=== PATIENT | female | born 1980 | race Caucasian/White ===

== ENCOUNTER → 2016-11-28 | Outpatient (REF) | payer OTHER ==
[~2016-11-28] MED LIST: /MOXI40TA OR; ALBU17IN2 IN; SYNT175T OR; VENTOLIN; ZOLO100T OR; advair; atrovent; prednisone
== END ==
LOC: M LAB REF 09:55
PROVIDERS: ATTEND Physician Assistant
DX: J02.9 Acute pharyngitis, unspecified (principal)

== ENCOUNTER → 2017-01-31 | Outpatient (CLI) | payer OTHER ==
[2017-01-31 14:52] LABS: MEAN CORPUSCULAR HEMOGLOBIN 24.3 pg (27.0-33.0); MEAN CORPUSCULAR VOLUME 78.4 fl (80.0-96.0); RED CELL DISTRIBUTION WIDTH 16.4 % (11.5-14.5); WHITE BLOOD COUNT 9.6 K/mm3 (4.0-10.0)
[2017-01-31 16:54] LABS: ALBUMIN 3.6 GM/DL (3.2-5.2); ALBUMIN/GLOBULIN RATIO 0.97 (1.00-1.93); ALKALINE PHOSPHATASE 57 U/L (45-117); ALT/SGPT 31 U/L (12-78); ANION GAP 7 MEQ/L (8-16); AST/SGOT 15 U/L (15-37); BILIRUBIN,TOTAL 0.2 MG/DL (0.2-1.0); BLOOD UREA NITROGEN 9 MG/DL (7-18); CALCIUM LEVEL 9.1 MG/DL (8.5-10.1); CARBON DIOXIDE LEVEL 30 MEQ/L (21-32); CHLORIDE LEVEL 104 MEQ/L (98-107); CREATININE FOR GFR 0.71 MG/DL (0.55-1.02); FREE T4 1.74 NG/DL (0.76-1.46); GLOMERULAR FILTRATION RATE > 60.0 (>60); GLUCOSE, FASTING 89 MG/DL (70-105); POTASSIUM SERUM 4.2 MEQ/L (3.5-5.1); SODIUM LEVEL 141 MEQ/L (136-145); TOTAL PROTEIN 7.3 GM/DL (6.4-8.2)
== END ==
LOC: M WUC 11:33
PROVIDERS: ATTEND Nurse Practitioner Family
DX: E03.9 Hypothyroidism, unspecified (principal); Z01.812 Encounter for preprocedural laboratory examination

== ENCOUNTER → 2017-04-04 | Outpatient (REF) | payer OTHER ==
[2017-04-04 16:43] LABS: ALBUMIN 3.9 GM/DL (3.2-5.2); ALBUMIN/GLOBULIN RATIO 1.11 (1.00-1.93); ALKALINE PHOSPHATASE 47 U/L (45-117); ALT/SGPT 40 U/L (12-78); ANION GAP 8 MEQ/L (8-16); AST/SGOT 22 U/L (15-37); BILIRUBIN,TOTAL 0.3 MG/DL (0.2-1.0); BLOOD UREA NITROGEN 12 MG/DL (7-18); CALCIUM LEVEL 9.6 MG/DL (8.5-10.1); CARBON DIOXIDE LEVEL 26 MEQ/L (21-32); CHLORIDE LEVEL 105 MEQ/L (98-107); CREATININE FOR GFR 0.57 MG/DL (0.55-1.02); FERRITIN 17 NG/ML (8-252); GLOMERULAR FILTRATION RATE > 60.0 (>60); GLUCOSE, FASTING 89 MG/DL (70-105); MAGNESIUM LEVEL 1.9 MG/DL (1.8-2.4); PERCENT SATURATION 12.2 % (13.2-45.0); PHOSPHORUS LEVEL 3.6 MG/DL (2.5-4.9); POTASSIUM SERUM 4.1 MEQ/L (3.5-5.1); SODIUM LEVEL 139 MEQ/L (136-145); TOTAL IRON BINDING CAPACITY 419 UG/DL (250-450); TOTAL PROTEIN 7.4 GM/DL (6.4-8.2)
[2017-04-04 18:26] LABS: BASO # 0.1 10^3/uL (0.0-0.2); EOS # 0.2 10^3/uL (0.0-0.50); EOS % 3.6 % (0.0-3.0); IMMATURE GRANULOCYTE % 0.3 % (0-0); LYMPH # 1.6 10^3/uL (1.5-4.5); LYMPH % 25.4 % (24.0-44.0); MEAN CORPUSCULAR HEMOGLOBIN 23.8 pg (27.0-33.0); MEAN CORPUSCULAR HGB CONC 30.3 g/dl (32.0-36.5); MEAN CORPUSCULAR VOLUME 78.5 fl (80.0-96.0); MONO # 0.5 10^3/uL (0.0-0.8); MONO % 8.1 % (0.0-5.0); NEUTROPHILS # 3.8 10^3/uL (1.8-7.7); NEUTROPHILS % 61.6 % (36.0-66.0); PLATELET COUNT, AUTOMATED 312 10^3/uL (150-450); RED CELL DISTRIBUTION WIDTH 17.4 % (11.5-14.5); WHITE BLOOD COUNT 6.2 10^3/uL (4.0-10.0)
[2017-04-04 18:53] LABS: VITAMIN B12 LEVEL 713 PG/ML (247-911)
[2017-04-06 11:38] LABS: PRETREATED FOLATE FOR RBCFOL 19.1 NG/ML
== END ==
LOC: M LAB REF 14:16
PROVIDERS: ATTEND Surgery
DX: K91.2 Postsurgical malabsorption, not elsewhere classified (principal); Z98.84 Bariatric surgery status

== ENCOUNTER → 2020-03-13 | Outpatient (CLI) | payer OTHER ==
[~2020-03-13] MED LIST changes: -/MOXI40TA OR; +AVEL1TAB2 OR; +FERR325T81 PO; +LEVO175T2 PO; +MULTCAP PO; +SERT-138 PO; +xyzal PO
== END ==
LOC: M LABSMTC 08:53
PROVIDERS: ATTEND Anesthesiology
DX: Z01.812 Encounter for preprocedural laboratory examination (principal); Z20.828 Contact with and (suspected) exposure to other viral communicable diseases
CPT/HCPCS: C9803; U0003

== ENCOUNTER 2020-03-18 06:12 | Day surgery (SDC) | payer BC, OTHER ==
[~2020-03-18] VITALS: Ht 157.5 cm; Wt 102.5 kg
[~2020-03-18 06:12] MED LIST changes: +LR 1,000 ML IV ONE
[2020-03-18] MEDS ORDERED: KETOROLAC 60MG 2ML VIAL As Ordered ONE (07:18)
[2020-03-18] MEDS ORDERED: ONDANSETRON 4MG/2ML VIAL As Ordered ONE (07:18)
[2020-03-18] MEDS ORDERED: dexameTHASONE 4 MG/ML 1ML VIAL (J1100 PER 1MG) As Ordered ONE (07:18)
[2020-03-18] MEDS ORDERED: MIDAZOLAM INJ 2MG/2ML VIAL (J2250 PER 1MG) As Ordered ONE (07:20)
[2020-03-18] MEDS ORDERED: fentaNYL 100 MCG/2 ML INJECTION (J3010) As Ordered ONE (07:20)
[2020-03-18] MEDS ORDERED: propofoL 200 MG/20 ML VIAL As Ordered ONE (07:21)
[2020-03-18] MEDS ORDERED: LIDOCAINE 2% 100MG/5ML SDV (FOR ANES.) As Ordered ONE (07:21)
[2020-03-18] MEDS ORDERED: ePHEDrine SULFATE 25 MG/5 ML(5MG/ML) SYRINGE As Ordered ONE (08:02)
[2020-03-18] MEDS ORDERED: oxyCODONE 5MG TAB PO PRN (09:00)
[2020-03-18] MEDS ORDERED: IBUPROFEN 600MG TAB PO PRN (09:00)
[2020-03-18] MEDS ORDERED: ONDANSETRON 4MG/2ML VIAL IV PRN (09:00)
[2020-03-18] MEDS ORDERED: LR 1,000 ML IV SCH ×2 (09:00)
[2020-03-18] MEDS ORDERED: HYDROMORPHONE HCL 0.5 MG/ 0.5 ML SYRINGE (J1170 PER 1) IV PRN (09:00)
[2020-03-18] MEDS ORDERED: fentaNYL 100 MCG/2 ML INJECTION (J3010) IV PRN (09:00)
[2020-03-18 09:10] VITALS: BP 133/79
--- NOTE | 2020-03-29 08:23 | RO ---
DATE OF OPERATION: 03/18/2020 PREOPERATIVE DIAGNOSIS: Atypical hyperplasia on pathology. POSTOPERATIVE DIAGNOSIS: Atypical hyperplasia on pathology. PROCEDURE: D&C, hysteroscopy, MyoSure resection. SURGEON: Ashly Ross MD CLIENT PARTNER: None. SPECIMEN: Endometrium. ANESTHESIA: LMA. BRIEF DESCRIPTION OF PROCEDURE AND FINDINGS: Brenda was brought to the operating room where sufficient LMA anesthesia was induced. She was prepped, draped and positioned in the usual sterile fashion with weighted speculum placed and single tooth tenaculum placed on the cervix. The uterus is very well supported. She would not be a candidate for vaginal approach to the uterus should that become necessary in the future. The uterus was sounded to 9 and then cervix carefully dilated in order to allow introduction of hysteroscope which was placed following which the endometrial cavity was visualized. There were several polypoid overgrowths, one of which looked of increased vascularity consistent with preop diagnosis of atypical complex hyperplasia. MyoSure resection was undertaken and complete resection of this overgrowth was achieved visually and there did not appear to be a hypervascularity below that overgrowth. We did also suction some saline through the tubing to ensure all that sample from the MyoSure went to path. We also did final curette passes over the uterus to complete the sampling and then the procedure was ended. Estimated blood loss for the procedure maybe 5 mL. Fluid replacement Crystalloid. Complications: None. Condition and Disposition: Brenda tolerated the procedure well and was recovering in recovery room in good condition. DELTA
== END 2020-03-18 09:45 | disposition home or self-care (01) ==
LOC: M SDC 06:12
PROVIDERS: ATTEND Obstetrics & Gynecology
DX: N85.01 Benign endometrial hyperplasia (principal); R10.2 Pelvic and perineal pain; N92.0 Excessive and frequent menstruation with regular cycle; E03.9 Hypothyroidism, unspecified; K44.9 Diaphragmatic hernia without obstruction or gangrene; K21.9 Gastro-esophageal reflux disease without esophagitis; L40.9 Psoriasis, unspecified; J45.909 Unspecified asthma, uncomplicated; Z79.899 Other long term (current) drug therapy
CPT/HCPCS: 58558; 81025; 88305; J1100; J1885; J2250; J2405; J3010

== ENCOUNTER → 2020-05-08 | Outpatient (CLI) | payer BC, OTHER ==
[~2020-05-08] MED LIST changes: +LEVO200T4 PO; -LR 1,000 ML IV ONE
== END ==
LOC: M LABSMTC 08:41
PROVIDERS: ATTEND Anesthesiology
DX: Z01.812 Encounter for preprocedural laboratory examination (principal); Z20.828 Contact with and (suspected) exposure to other viral communicable diseases

== ENCOUNTER 2020-05-13 08:39 | Day surgery (SDC) | payer BC, OTHER ==
[2020-05-13] VITALS (8 sets, daily range): BP systolic 107–121; BP diastolic 71–88; O2SAT 92
[~2020-05-13] VITALS: Ht 157.5 cm; Wt 105.6 kg
[~2020-05-13 08:39] MED LIST changes: -LEVO200T4 PO; +LR 1,000 ML IV ONE; +ceFAZolin SOD 2 GM in IV 1 EA IV ONE
[2020-05-13] MEDS ORDERED: ROCURONIUM BROMIDE 50 MG/5 ML VIAL As Ordered ONE (09:33)
[2020-05-13] MEDS ORDERED: METOCLOPRAMIDE INJ 10MG/2ML VIAL (J2765 PER 1) As Ordered ONE (09:33)
[2020-05-13] MEDS ORDERED: MIDAZOLAM INJ 2MG/2ML VIAL (J2250 PER 1MG) As Ordered ONE (09:33)
[2020-05-13] MEDS ORDERED: ONDANSETRON 4MG/2ML VIAL As Ordered ONE (09:33)
[2020-05-13] MEDS ORDERED: LIDOCAINE 2% 100MG/5ML SDV (FOR ANES.) As Ordered ONE (09:33)
[2020-05-13] MEDS ORDERED: propofoL 200 MG/20 ML VIAL As Ordered ONE (09:33)
[2020-05-13] MEDS ORDERED: fentaNYL 100 MCG/2 ML INJECTION (J3010) As Ordered ONE (09:34)
[2020-05-13 09:36] LABS: HEMATOCRIT 40.5 % (36.0-47.0); HEMOGLOBIN 12.3 g/dl (12.0-15.5); MEAN CORPUSCULAR HGB CONC 30.4 g/dl (32.0-36.5); PLATELET COUNT, AUTOMATED 270 10^3/uL (150-450); RED BLOOD COUNT 4.55 10^6/uL (4.00-5.40); WHITE BLOOD COUNT 6.7 10^3/uL (4.0-10.0)
[2020-05-13] MEDS ORDERED: HALOPERIDOL 5MG/ML VIAL (J1630 PER 1) As Ordered ONE (10:22)
[2020-05-13] MEDS ORDERED: SCOPOLAMINE 1MG TRANSDERMAL PATCH TOP ONE (10:30)
[2020-05-13] MEDS ORDERED: HYDROmorphone HCL 2 MG/ML 1ML VIAL (J1170) As Ordered ONE (11:08)
[2020-05-13] MEDS ORDERED: LABETALOL 100MG/20ML VIAL As Ordered ONE (11:08)
[2020-05-13] MEDS ORDERED: SUGAMMADEX SODIUM 500 MG/5 ML VIAL (BRIDION) As Ordered ONE (12:11)
[2020-05-13] MEDS ORDERED: dexameTHASONE 4 MG/ML 1ML VIAL (J1100 PER 1MG) As Ordered ONE (12:11)
[2020-05-13] MEDS ORDERED: KETOROLAC 60MG 2ML VIAL As Ordered ONE (12:11)
[2020-05-13] MEDS ORDERED: MORPHINE 1MG/ML IN 0.9% NACL 100ML IV BAG As Ordered ONE (12:40)
[2020-05-13] MEDS ORDERED: LR 1,000 ML IV SCH (13:00)
[2020-05-13] MEDS ORDERED: ONDANSETRON 4MG/2ML VIAL IV PRN (13:00)
[2020-05-13] MEDS ORDERED: fentaNYL 100 MCG/2 ML INJECTION (J3010) IV PRN (13:00)
[2020-05-13] MEDS: oxyCODONE 5MG TAB PO PRN ×2 (13:03→13:33)
[2020-05-13] MEDS ORDERED: LEVO200T4 PO (13:05)
[2020-05-13] MEDS ORDERED: IBUPROFEN 600MG TAB PO PRN (13:15)
[2020-05-13] MEDS ORDERED: NALBUPHINE HCL 10 MG/ML AMP (J2300) IV PRN (13:15)
[2020-05-13] MEDS ORDERED: MORPHINE 1MG/ML IN 0.9% NACL 100ML IV BAG IV PRN (13:15)
[2020-05-13] MEDS ORDERED: EPIDURAL/PCA KEYS XX PRN (13:15)
[2020-05-13] MEDS ORDERED: diphenhydrAMINE 50MG/ML VIAL (J1200) IV PRN (13:15)
[2020-05-13] MEDS ORDERED: NALOXONE INJ 0.4MG/1ML VIAL (J2310 PER 1MG) IV PRN (13:15)
[2020-05-13] MEDS: LR 1,000 ML IV SCH (22:59)
[2020-05-14 02:00] VITALS: BP 119/84
[2020-05-14] MEDS: LR 1,000 ML IV SCH (03:33)
[2020-05-14 06:00] VITALS: BP 119/78
[2020-05-14] MEDS ORDERED: NORCO, ANEXSIA 5/325MG TABLET (HYDROcodone/ACETAMINOPHEN) PO PRN (06:00)
[2020-05-14 06:34] LABS: HEMATOCRIT 31.6 % (36.0-47.0); MEAN CORPUSCULAR HEMOGLOBIN 27.1 pg (27.0-33.0); MEAN CORPUSCULAR HGB CONC 30.1 g/dl (32.0-36.5); MEAN CORPUSCULAR VOLUME 90.3 fl (80.0-96.0); PLATELET COUNT, AUTOMATED 248 10^3/uL (150-450); WHITE BLOOD COUNT 9.9 10^3/uL (4.0-10.0)
[2020-05-14 06:39] LABS: HEMOGLOBIN 9.5 g/dl (12.0-15.5)
--- NOTE | 2020-05-14 10:58 | RO ---
DATE OF OPERATION: 05/13/2020 PREOPERATIVE DIAGNOSIS/INDICATION FOR SURGERY: Bleeding, pain and hyperplasia of the endometrium. POSTOPERATIVE DIAGNOSIS: Bleeding, pain and hyperplasia of the endometrium. PROCEDURE: Total vaginal hysterectomy with bilateral salpingectomy. SURGEON: Ashly Ross MD PUBLIC HEALTH CLINICAL NURSE SPECIALIST: None. ANESTHESIA: General endotracheal anesthesia. BRIEF DESCRIPTION OF PROCEDURE/FINDINGS: Brenda was brought to the operating room where sufficient general endotracheal anesthesia was induced. She was prepped, draped and positioned in usual fashion. Cervix grasped with single tooth tenaculum. She has an unusually large cervix so we had two single tooth and double tooth on the cervix to try to compress it so we could see around it because she had a reasonably well supported uterus. With those graspers we were able to put a posterior and anterior retractor in and then get circumferential incision around the base of the cervix and isolate the cardinal ligaments which were clamped, transected and ligated. Attention was turned to the uterosacrals which were clamped, transected and ligated. We entered the peritoneum posteriorly. Anteriorly we dissected the tissues back and we continued the progressive dissection along the lateral aspect of the uterus, controlling the uterine vasculature in sequential fashion until the level of the uteroovarian suspensory ligaments were reached and these too were clamped, transected and ligated. On the left side the tube was brought down and we were able to see that quite well but then we went ahead and transected it so that we could remove the uterus, get it out of the way and then remove the left tube. We were able to visualize and palpated the left ovary as normal appearance. We then went to the pedicles. On the right side we had good hemostasis of the pedicles but on the right side initially it appeared that the tube was just very well supported so we went ahead and tied off the proximal aspect of the tube and handed off the specimen but then as we were grasping the edges of the vaginal cuff with the long Allis the fimbria came down from the right side so we went ahead and took the fimbria on the right as well so we had bilateral tubes and we had good hemostasis of pedicles but we had had persistent oozing from the vaginal cuff during the case. We tied angle stitches of #0 Vicryl incorporating the uterosacrals and then closed the cuff with running locked stitch of #0 Vicryl with good approximation and hemostasis achieved. At the end of the procedure the estimated blood loss was about 350 mL. Again, the patient had more oozing from the ascending vaginal vessels than is typical but appeared to have good control at the pedicles themselves and good control at the end of the case. Fluid replacement was Crystalloid. There were no drains other than Rodríguez. Specimen was uterus and tubes and cervix attached to the uterus. COMPLICATIONS: None. CONDITION AND DISPOSITION: Brenda tolerated the procedure well and was recovering in the recovery room in good condition. DELTA
== END 2020-05-14 09:59 | disposition home or self-care (01) ==
LOC: M SDC 08:39 → M MSPAV 14:17 → M SDC 05-14 09:59
PROVIDERS: ATTEND Obstetrics & Gynecology
DX: R10.2 Pelvic and perineal pain (principal); N93.9 Abnormal uterine and vaginal bleeding, unspecified; N85.00 Endometrial hyperplasia, unspecified; N80.0 Endometriosis of uterus; N72 Inflammatory disease of cervix uteri; E06.3 Autoimmune thyroiditis; F32.9 Major depressive disorder, single episode, unspecified; F41.9 Anxiety disorder, unspecified; J45.909 Unspecified asthma, uncomplicated; L40.9 Psoriasis, unspecified; R06.83 Snoring; Z79.890 Hormone replacement therapy; Z87.891 Personal history of nicotine dependence; Z98.84 Bariatric surgery status
CPT/HCPCS: 36415; 58262; 85027; 86850; 86900; 86901; 88307; 96374; J0690; J1100; J1170; J1885; J2250; J2405; J2765; J3010

== ENCOUNTER → 2022-05-09 | Outpatient (CLI) | payer BC, OTHER ==
[~2022-05-09] MED LIST changes: +LEVO200T4 PO; -LR 1,000 ML IV ONE; -ceFAZolin SOD 2 GM in IV 1 EA IV ONE
== END ==
LOC: M WHC 12:04
PROVIDERS: ATTEND Physician Assistant
DX: N63.10 Unspecified lump in the right breast, unspecified quadrant (principal); N63.20 Unspecified lump in the left breast, unspecified quadrant
CPT/HCPCS: 77066; G0279